=== PATIENT | male | born 1965 | race African-American/Black ===

== ENCOUNTER 2018-01-13 16:26 | Emergency (ER) | payer OTHER ==
[~2018-01-13] VITALS: Ht 162.6 cm; Wt 66.2 kg
[2018-01-13 16:36] VITALS: TEMP 98.5
[2018-01-13 17:32] VITALS: BP 159/83
== END 2018-01-13 17:33 | disposition home or self-care (01) ==
LOC: ED 16:26
PROC: 0HQGXZZ Repair Left Hand Skin, External Approach (ICD-10-PCS; principal; 2018-01-13)
DX: S61.412A Laceration without foreign body of left hand, initial encounter (principal); W45.8XXA Other foreign body or object entering through skin, initial encounter
CPT/HCPCS: 99283; J7040

== ENCOUNTER 2020-06-14 08:25 | Outpatient (CLI) | payer OTHER | END 2020-06-14 23:33 | disposition home or self-care (01) | LOC: RAD 08:25 | DX: M25.562 Pain in left knee (principal) ==

== ENCOUNTER 2021-08-12 11:53 | Outpatient (CLI) | payer OTHER | END 2021-08-12 21:50 | disposition home or self-care (01) | LOC: RAD 11:53 | PROVIDERS: ATTEND Nurse Practitioner Family | DX: M79.642 Pain in left hand (principal) ==

== ENCOUNTER 2022-02-28 11:34 | Outpatient (CLI) | payer OTHER | END 2022-02-28 19:22 | disposition home or self-care (01) | LOC: US 11:34 | PROVIDERS: ATTEND Nurse Practitioner Family | DX: N50.812 Left testicular pain (principal) ==